=== PATIENT | female | born 1950 | race Caucasian/White ===

== ENCOUNTER 2024-12-05 14:07 | Inpatient (IN) | payer MEDICARE, OTHER ==
[~2024-12-05 14:07] MED LIST: Iopamidol 370 76% 100 ML VIAL ONE
[2024-12-05] MEDS ORDERED: Acetaminophen 500 MG TAB ONE (14:42)
[2024-12-05 15:12] LABS: Hematocrit 37.3 % (36.0-47.0); Hemoglobin 11.8 g/dL (12.0-16.0); Mean Corpuscular Hemoglobin 28.9 pg (27.0-31.0); Mean Corpuscular Volume 91.4 fL (78.0-98.0); Platelet Count 145 10x3/uL (130-400); Red Blood Cell (RBC) Count 4.08 mill/uL (4.20-5.40); Reflex for Review?? YES; White Blood Cell (WBC) Count 1.80 10x3/uL (4.8-10.8)
[2024-12-05 15:51] LABS: ALT (SGPT) 21 U/L (Less than 34); AST (SGOT) 49 U/L (11-34); Albumin 3.5 g/dL (3.1-4.5); Alkaline Phosphatase 84 U/L (40-110); Anion Gap 15 mmol/L (10-20); BUN (Urea Nitrogen) 13 mg/dL (9.8-20.1); Bilirubin, Total 0.8 mg/dL (0.3-1.2); Calc. Creatinine Clearance 0 mL/min (70-130); Calcium 9.0 mg/dL (7.8-10.44); Carbon Dioxide 24 mmol/L (23-31); Chloride 107 mmol/L (98-107); Globulin 2.3 g/dL (2.4-3.5); Glucose 104 mg/dL (83-110); Potassium 3.6 mmol/L (3.5-5.1); Sodium 142 mmol/L (136-145)
[2024-12-05 15:58] LABS: Giant Platelets 8.9 % (0-5); Platelet Adequacy Comment Platelets Normal; Polychromasia SLIGHT = 2-3 cells HPF (0-2); Smudge Cells 2.4 %
[2024-12-05 18:55] LABS: Bacteria/HPF None Seen HPF (None Seen); CAUTI Indications for Culture Alt mental st,lethar; Glucose, Urine (Dipstick) Normal (Negative); Leukocyte Negative Leu/uL (Negative); Protein, Urine (Dipstick) 30 mg/dL (Neg-Trace); RBC/HPF None Seen HPF (0-3); Specific Gravity, Urine 1.014 (1.002-1.036); WBC/HPF 0-3 HPF (0-3)
[2024-12-05 18:56] LABS: Urine Culture Reflex No No
[2024-12-05] MEDS ORDERED: Ondansetron PF 4 MG/2 ML Vial ONE (19:55)
[2024-12-05 20:18] LABS: CRP, High Sensitivity at Bryan 1.70 mg/dL (< or = 0.5); Lipase 24 U/L (8-78); Magnesium 1.3 mg/dL (1.6-2.6)
[2024-12-05] MEDS ORDERED: Ondansetron PF 4 MG/2 ML Vial IVP PRN (21:01)
[2024-12-06 01:56] LABS: Hematocrit 32.9 % (36.0-47.0); Hemoglobin 10.3 g/dL (12.0-16.0); Platelet Count 125 10x3/uL (130-400)
[2024-12-06] MEDS: Magnesium Sulfate In Water 4 GM in Premix 1 BAG IVPB SCH (02:26)
[2024-12-06 02:30] LABS: Cocaine Metabolite Screen Negative (Negative); THC/Cannabinoid Screen Negative (Negative); Tricyclic Screen Negative (Negative)
[2024-12-06] MEDS: Aspirin 325 MG TAB PO SCH (02:37)
[2024-12-06 03:52] LABS: Thyroid Stimulating Hormone 0.6024 uIU/mL (0.35-4.94); Vitamin B12 596.0 pg/mL (211-911)
[2024-12-06] MEDS: Heparin 10,000 UNITS/ 10 ML VIAL SLOW IVP SCH (04:24)
[2024-12-06 05:06] LABS: Hematocrit 33.8 % (36.0-47.0); Hemoglobin 10.5 g/dL (12.0-16.0); Mean Corpuscular Hemoglobin 28.8 pg (27.0-31.0); Mean Corpuscular Volume 92.6 fL (78.0-98.0); Platelet Count 131 10x3/uL (130-400); Red Blood Cell (RBC) Count 3.65 mill/uL (4.20-5.40); White Blood Cell (WBC) Count 8.24 10x3/uL (4.8-10.8)
[2024-12-06 05:49] LABS: Anion Gap 11 mmol/L (10-20); BUN (Urea Nitrogen) 20 mg/dL (9.8-20.1); Calc. Creatinine Clearance 51 mL/min (70-130); Calcium 8.2 mg/dL (7.8-10.44); Carbon Dioxide 21 mmol/L (23-31); Cardiac Risk 2.7 (Less than 4.5); Chloride 110 mmol/L (98-107); Cholesterol 107 mg/dl (< 200 Desired); Glucose 106 mg/dL (83-110); HDL Cholesterol 39 mg/dL (>60 Neg Risk); LDL Cholesterol, Calculated 54 mg/dL; Magnesium 3.3 mg/dL (1.6-2.6); Potassium 3.4 mmol/L (3.5-5.1); Sodium 139 mmol/L (136-145); Triglycerides 72 mg/dL (Less than 150)
[2024-12-06 06:34] VITALS: BMI 37.0
[2024-12-06] MEDS: PNEUMOC 20-VAL CONJ-DIP CRM/PF 0.5 ML SYRINGE IM ONE (08:33)
[2024-12-06] MEDS: Famotidine 20 MG TAB PO SCH (08:33)
[2024-12-06] MEDS: Acetaminophen 325 MG TAB PO PRN (10:21)
[2024-12-06] MEDS ORDERED: Fioricet 325/50/40 mg Tablet PO PRN (11:00)
[2024-12-06 14:40] LABS: PTT Greater than 250.0 sec (22.9-36.1)
[2024-12-06] MEDS: Apixaban 5 MG TAB PO SCH (20:26)
[2024-12-07 04:19] LABS: Hematocrit 34.6 % (36.0-47.0); Hemoglobin 11.0 g/dL (12.0-16.0); Mean Corpuscular Hemoglobin 28.4 pg (27.0-31.0); Mean Corpuscular Volume 89.2 fL (78.0-98.0); Platelet Count 134 10x3/uL (130-400); Red Blood Cell (RBC) Count 3.88 mill/uL (4.20-5.40); White Blood Cell (WBC) Count 5.56 10x3/uL (4.8-10.8)
[2024-12-07 04:34] LABS: Anion Gap 11 mmol/L (10-20); BUN (Urea Nitrogen) 14 mg/dL (9.8-20.1); Calc. Creatinine Clearance 85 mL/min (70-130); Calcium 8.8 mg/dL (7.8-10.44); Carbon Dioxide 20 mmol/L (23-31); Chloride 114 mmol/L (98-107); Glucose 90 mg/dL (83-110); Potassium 4.2 mmol/L (3.5-5.1); Sodium 141 mmol/L (136-145)
[2024-12-07 06:28] LABS: Anisocytosis SLIGHT = 6-15 cells HPF (0-5); Burr Cells SLIGHT = 2-5 cells HPF (0-1); Macrocytosis SLIGHT = 6-15 cells HPF (0-5); Platelet Adequacy Comment Platelets Normal; Polychromasia SLIGHT = 2-3 cells HPF (0-2); Smudge Cells 16.8 %
[2024-12-07] MEDS: Famotidine 20 MG TAB PO SCH (08:32)
[2024-12-07 11:46] VITALS: BP 175/73; TEMP 98.3
[2024-12-07] MEDS: Rosuvastatin 10 MG TAB PO SCH (12:35)
== END 2024-12-07 17:27 | disposition home or self-care (01) | DRG 808 ==
LOC: ERS 14:07 → ERHOLD 21:06 → IMCU/EMU 12-06 01:04 → PCU 12-06 20:45
PROVIDERS: ADMIT Student in an Organized Health Care Education/Training Program; ATTEND Family Medicine
DX: D70.9 Neutropenia, unspecified (principal); I21.4 Non-ST elevation (NSTEMI) myocardial infarction; E87.20 Acidosis, unspecified; I10 Essential (primary) hypertension; E83.42 Hypomagnesemia; D64.9 Anemia, unspecified; I48.91 Unspecified atrial fibrillation; Z79.01 Long term (current) use of anticoagulants; Z79.899 Other long term (current) drug therapy
CPT/HCPCS: 36415; 51701; 70450; 70551; 71045; 74177; 80048; 80053; 80061; 80306; 81001; 82140; 82607; 83605; 83690; 83735; 83880; 84100; 84145; 84443; 84484; 85014; 85018; 85025; 85027; 85049; 85060; 85379; 85730; 86141; 87040; 87081; 87428; 87430; 90471; 90677; 93005; 93010; 93306; 96360; 96361; G0009; J0692; J1644; J2405; J3475; J7120; Q9967